=== PATIENT | female | born 1965 ===

== ENCOUNTER 2021-04-01 06:11 | Day surgery (SDC) | payer OTHER ==
[~2021-04-01 06:11] MED LIST: ATIVAN1 M1 PO; LASIX20 MG PO; METFORMIN HCL500 M4 PO; SYNTHROID50 MCG PO; WELLBUTRIN SR200 MG PO; ZESTRIL10 M1 PO
== END 2021-04-01 11:05 | disposition home or self-care (01) ==
LOC: CIR.AMB 06:11
PROVIDERS: ATTEND Orthopaedic Surgery
DX: M75.121 Complete rotator cuff tear or rupture of right shoulder, not specified as traumatic (principal); Z20.822 Contact with and (suspected) exposure to COVID-19